=== PATIENT | male | born 2000 | race African-American/Black ===

== ENCOUNTER 2023-06-03 18:12 | Emergency (ER) | payer MEDICAID ==
[~2023-06-03] VITALS: Ht 177.8 cm; Wt 82.0 kg
[2023-06-03 18:35] VITALS: BP 129/82; PULSE 82; RESP 16; TEMP 98.1; O2SAT 100
[2023-06-03] MEDS ORDERED: KETOROLAC 30MG/ML VIAL IM ONE (19:15)
[2023-06-03] MEDS ORDERED: CEFTRIAXONE SODIUM 1 G/VIAL IM ONE (19:15)
[2023-06-03 19:24] LABS: CLARITY URINE CLEAR (CLEAR); COLOR URINE YELLOW (YELLOW); GLUCOSE URINE NEGATIVE (NEGATIVE); KETONES URINE TRACE (NEGATIVE); LEUKOCYTE ESTERASE URINE NEGATIVE (NEGATIVE); NITRITE URINE NEGATIVE (NEGATIVE); OCCULT BLOOD URINE NEGATIVE (NEGATIVE); PH URINE 6.5 (4.5-8.0); PROTEIN URINE TRACE (NEGATIVE); SPECIFIC GRAVITY URINE 1.031 (1.005-1.030)
[2023-06-03 19:26] LABS: BACTERIA URINE NONE SEEN; SQUAMOUS EPITHELIAL CELL URINE NONE SEEN /lpf (RARE/1+); WBC URINE 0-2 /hpf (0-2); YEAST URINE NONE SEEN
[2023-06-03] MEDS ORDERED: CYCL5TAB MT (19:29)
[2023-06-03] MEDS ORDERED: DOXY100C5 MT (19:29)
[2023-06-03 19:43] LABS: RBC URINE 0-2 /hpf (0-2)
== END 2023-06-03 20:28 | disposition home or self-care (01) ==
LOC: ER 18:12
DX: M54.50 Low back pain, unspecified (principal); M79.18 Myalgia, other site
CPT/HCPCS: 87491; 87591; 81003; 96372; 99284; J0696; J1885; Z7610 ×2